=== PATIENT | male | born 1950 | race Caucasian/White ===

== ENCOUNTER 2020-02-06 10:04 | Outpatient (CLI) | payer MEDICARE ==
[2020-02-06] MEDS ORDERED: LIDOcaine 2% 5ml jelly ONE (10:54)
== END 2020-02-06 23:59 | disposition home or self-care (01) ==
LOC: WOUND CARE 10:04 → EDSTATUS 10:20 → WOUND CARE 23:59
PROVIDERS: ATTEND Nurse Practitioner
DX: E11.622 Type 2 diabetes mellitus with other skin ulcer (principal); L97.822 Non-pressure chronic ulcer of other part of left lower leg with fat layer exposed; L97.222 Non-pressure chronic ulcer of left calf with fat layer exposed; K21.9 Gastro-esophageal reflux disease without esophagitis; Z72.0 Tobacco use
CPT/HCPCS: 11042; 11045

== ENCOUNTER 2020-02-10 13:13 | Outpatient (CLI) | payer MEDICARE ==
[2020-02-10] MEDS ORDERED: LIDOcaine 2% 5ml jelly ONE (13:56)
== END 2020-02-10 23:59 | disposition home or self-care (01) ==
LOC: WOUND CARE 13:13
PROVIDERS: ATTEND Nurse Practitioner
DX: E11.622 Type 2 diabetes mellitus with other skin ulcer (principal); L97.822 Non-pressure chronic ulcer of other part of left lower leg with fat layer exposed; L97.222 Non-pressure chronic ulcer of left calf with fat layer exposed; K21.9 Gastro-esophageal reflux disease without esophagitis; Z72.0 Tobacco use
CPT/HCPCS: G0463

== ENCOUNTER 2020-08-30 18:27 | Emergency (ER) | payer MEDICARE ==
[~2020-08-30] VITALS: Ht 188 cm; Wt 115.9 kg
[2020-08-30 19:22] VITALS: BP 155/97
--- NOTE | 2020-08-30 19:27 | NUR ---
DR MCWILLIAMS IN TRIAGE ASSESSING WOUND
[2020-08-30 20:37] LABS: ALBUMIN 3.2 G/DL (3.4-5.0); ANION GAP 11 (8-16); CHLORIDE 103 MMOL/L (99-107); CREATININE 1.27 MG/DL (0.60-1.10); POTASSIUM 3.8 MMOL/L (3.5-5.1); SODIUM 140 MMOL/L (135-145); TOTAL CARBON DIOXIDE 26.2 MMOL/L (24-32); eGFR 56 ML/MIN
[2020-08-30 20:40] LABS: BLOOD UREA NITROGEN 18 MG/DL (7-18); BUN/CREATININE RATIO 14.2 (5.4-32.0); CALCIUM 9.1 MG/DL (8.5-10.1); GLUCOSE 115 MG/DL (70-104)
[2020-08-30 20:44] LABS: BASOPHILS % (AUTO) 0.2 % (0-1); EOSINOPHILS # (AUTO) 0.2 X10'3 (0-0.9); EOSINOPHILS % (AUTO) 1.9 % (0-6); HEMATOCRIT 38.8 % (42.0-52.0); HEMOGLOBIN 13.1 g/dl (14.0-17.9); LYMPHOCYTES # (AUTO) 1.6 X10'3 (1.1-4.8); LYMPHOCYTES % (AUTO) 20.2 % (21-51); MEAN CORPUSCULAR HEMOGLOBIN 32.1 PG (27.0-31.0); MEAN CORPUSCULAR HGB CONC 33.8 g/dL (33.0-36.5); MONOCYTES # (AUTO) 0.7 X10'3 (0-0.9); MONOCYTES % (AUTO) 9.1 % (2-12); NEUTROPHILS # (AUTO) 5.5 X10'3 (1.8-7.7); NEUTROPHILS % (AUTO) 68.6 % (42-75); PLATELET COUNT 394 X10'3 (140-440); RED BLOOD COUNT 4.08 X10'6 (4.70-6.10); RED CELL DISTRIBUTION WIDTH 14.3 % (11.5-14.5)
== END 2020-08-30 21:45 | disposition left against medical advice (07) ==
LOC: ER 18:28
DX: S81.802A Unspecified open wound, left lower leg, initial encounter (principal); L03.116 Cellulitis of left lower limb; F17.210 Nicotine dependence, cigarettes, uncomplicated; E11.9 Type 2 diabetes mellitus without complications; Z86.19 Personal history of other infectious and parasitic diseases; Z72.0 Tobacco use; X58.XXXA Exposure to other specified factors, initial encounter; Y93.89 Activity, other specified; Y92.89 Other specified places as the place of occurrence of the external cause; Y99.8 Other external cause status
CPT/HCPCS: 36415; 80048; 83605; 84145; 85025; 99283